=== PATIENT | female | born 1995 | race Caucasian/White ===

== ENCOUNTER 2019-06-20 09:34 | Emergency (ER) | payer BC ==
--- NOTE | 2019-06-20 10:31 | RAD REPORT ---
EXAM DESCRIPTION: CT - Head Brain Wo Cont - 06/20/2019 10:20 am CLINICAL HISTORY: Headache COMPARISON: None TECHNIQUE: Computed axial tomography of the head was obtained. IV contrast was not requested. All CT scans are performed using dose optimization technique as appropriate and may include automated exposure control or mA/KV adjustment according to patient size. FINDINGS: An intracranial bleed is not seen . The ventricles are normal in caliber. No extra-axial fluid collection is noted. Cerebellar tonsillar ectopia is present Fluid within the sinuses/ mastoids is not seen. IMPRESSION: Cerebellar tonsillar ectopia No acute intracranial abnormality is seen. If patient's symptoms persist MRI of the brain would be r ecommended.
--- NOTE | 2019-06-20 10:34 | EKG ---
Test Date: 2019-06-20 Test Time: 10:15:24 Electrical Sign Wirer Helper: NEVAEH MEASUREMENT RESULTS: Intervals: Rate: 75 TX: 132 QRSD: 84 QT: 378 QTc: 422 Startex: P: 80 TX: 132 QRS: 80 T: 70 INTERPRETIVE STATEMENTS: Normal sinus rhythm with sinus arrhythmia Normal ECG No previous ECG available for comparison Electronically Signed On 06-20-19 10:33:20 HALL MANAGER by Johnathan Marion
[2019-06-20] MEDS ORDERED: METOCLOPRAMIDE 10 MG/2mL INJ ONE (10:48)
[2019-06-20] MEDS ORDERED: NA CHLORIDE 0.9% 1,000 ML ONE (10:48)
[2019-06-20 10:50] LABS: Absolute Lymphocytes (CBC) 1.4 K/uL (0.7-4.9); Basophils % 0.2 % (0-1.3); Hematocrit 37.8 % (36.0-45.0); Lymphocytes % 23.5 % (15.3-44.8); MPV 9.3 fL (7.6-11.3); RBC Red Blood Cell Count 4.31 M/uL (3.86-4.86)
[2019-06-20 10:50] LABS: Urine Blood 1+ (NEG); Urine Glucose NEGATIVE (NEG); Urine Protein NEGATIVE (NEG)
[2019-06-20 11:08] LABS: Potassium 3.8 mmol/L (3.5-5.1)
--- NOTE | 2019-06-20 11:23 | ER ---
Nurse's Notes [facility] Name: Radha Rosa Age: 23 yrs Sex: Female : 1995 Arrival Date: 06/20/2019 Time: 09:36 Bed 14 Private MD: Diagnosis: Dizziness and giddiness;Headache Presentation: 06/20 09:42 Presenting complaint: Sinus pressure, dizziness, headache, nausea, and tingling of hb hands and feet x 2 hrs. Hx of anxiety, switched from Lexapro to Zoloft 1 week ago. 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 09:42 Method Of Arrival: Ambulatory hb 09:44 Transition of care: patient was not received from another setting of care. Onset of hb symptoms was June 20, 2019. Risk Assessment: Do you want to hurt yourself or someone else? Patient reports no desire to harm self or others. Initial Sepsis Screen: Does the patient meet any 2 criteria? No. Patient's initial sepsis screen is negative. Does the patient have a suspected source of infection? No. Patient's initial sepsis screen is negative. 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 09:44 Acuity: MALLORY 3 hb Triage Assessment: 09:45 Headache History: The patient has had previous headaches and this one is different than rb1 previous episodes. 09:45 Pain: Also complains of nausea. 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 - Social history:: Smoking status: Patient/guardian denies using tobacco. - Ebola Screening: : No symptoms or risks identified at this time. - Family history:: not pertinent. - Hospitalizations: : No recent hospitalization is reported. Screenin:45 Abuse screen: Denies threats or abuse. Nutritional screening: No deficits noted. rb1 Tuberculosis screening: No symptoms or risk factors identified. Fall Risk None identified. Assessment: 09:45 General: Appears in no apparent distress. comfortable, Behavior is calm, cooperative, rb1 Denies fever. Pain: Complains of pain in head Pain currently is 5 out of 10 on a pain scale. Neuro: Level of Consciousness is awake, alert, obeys commands, Oriented to person, place, time, situation, Reports blurred vision dizziness, headache weakness since Symptoms started at 0630 this morning. Neuro: Reports numbness in face and legs. Cardiovascular: Capillary refill < 3 seconds is brisk in bilateral fingers. Respiratory: Airway is patent Respiratory effort is even, unlabored, Respiratory pattern is regular, symmetrical. Respiratory: Reports congestion. GI: Reports nausea. : No signs and/or symptoms were reported regarding the genitourinary system. Derm: Skin is pink, warm \T\ dry. Musculoskeletal: Range of motion: intact in all extremities. 10:45 Reassessment: Patient appears in no apparent distress at this time. No changes from rb1 previously documented assessment. 11:40 Reassessment: Patient appears in no apparent distress at this time. Patient and/or rb1 family updated on plan of care and expected duration. Pain level reassessed. Patient is alert, oriented x 3, equal unlabored respirations, skin warm/dry/pink. Vital Signs: 09:44 BP 133 / 84; Pulse 92; Resp 16; Temp 98.2; Pulse Ox 100% ; Weight 49.9 kg; Height 5 ft. hb 7 in. (170.18 cm); Pain 3/10; 10:57 BP 106 / 62; Pulse 76; Resp 15; Temp 98.1(O); Pulse Ox 100% on R/A; mh5 11:40 BP 110 / 79; Pulse 75; Resp 16; Pulse Ox 99% on R/A; rb1 09:44 Body Mass Index 17.23 (49.90 kg, 170.18 cm) hb ED Course: 09:36 Patient arrived in ED. as 09:44 Arm band placed on. hb 09:45 Triage completed. hb 09:53 Sampson Taylor MD is Attending Physician. rn 10:13 Cailin Sweet, LEONORA is Primary Nurse. rb1 10:15 EKG done, by geospatial technician. reviewed by Sampson Taylor MD. at1 10:[address] via wheelchair. sw 10:23 CT Head Brain wo Cont In Process Unspecified. EDMS 10:53 Urine collected: clean catch specimen, clear. Inserted saline lock: 22 gauge in right mh5 antecubital area, using aseptic technique. Blood collected. 10:54 Patient has correct armband on for positive identification. Bed in low position. Call [facility] light in reach. Pulse ox on. NIBP on. 10:56 Urine Microscopic Only Sent. 5 10:56 Basic Metabolic Panel Sent. [facility] 10:56 CBC with Diff Sent. [facility] 11:47 No provider procedures requiring assistance completed. IV discontinued, intact, rb1 bleeding controlled, No redness/swelling at site. Pressure dressing applied. Administered Medications: 10:55 Drug: Reglan 10 mg Route: IVP; Site: right antecubital; rb1 11:10 Follow up: Response: No adverse reaction rb1 10:55 Drug: NS 0.9% 1000 ml Route: IV; Rate: 1000 ml; Site: right antecubital; rb1 11:40 Follow up: IV Status: Completed infusion rb1 Outcome: 11:23 Discharge ordered by MD. rn 11:47 Patient left the ED. [facility] 11:47 Discharged to home ambulatory, with family. [facility] 11:47 Condition: stable 11:47 Discharge instructions given to patient, Instructed on discharge instructions, follow up and referral plans. Demonstrated understanding of instructions, follow-up care, Prescriptions given X none Signatures: Dispatcher [employer] Francoise Hickey Roman, MD MD rn Gonzales, Amanda, manufacturing worker EKG Tat1 Sandrine Gonsalez Rebecca, RN RN rb1 Deidre Osei RN RN hb Martinez, Maria [facility] Corrections: (The following items were deleted from the chart) 10:58 09:46 Allergies: No Known Allergies; [facility]
--- NOTE | 2019-06-20 11:24 | EDPHYS ---
Physician Documentation [facility] Name: Radha Rosa Age: 23 yrs Sex: Female : 1995 Arrival Date: 06/20/2019 Time: 09:36 Bed 14 Private MD: ED Physician Sampson Taylor HPI: 06/20 10:08 This 23 yrs old Female presents to ER via Ambulatory with complaints of rn Dizziness, Headache. 10:08 The patient presents with dizziness, lightheadedness. Onset: The symptoms/episode rn began/occurred 2 hour(s) ago. Context: occurred while the patient was at rest, just prior to the episode the patient experienced no apparent symptoms. Modifying factors: The symptoms are alleviated by nothing, the symptoms are aggravated by nothing. Severity of symptoms: At their worst the symptoms were moderate in the emergency department the symptoms have improved. The patient has not experienced similar symptoms in the past. Reports at rest, sudden onset of dizziness, blurred vision, numbness to both legs, came in 2 episodes, each one lasted approx 15 min, took xanax prior to arrival, not sure if the medication helped, but feels better, near baseline now. Mother with MS, patient without medical problems other than depression and anxiety. No head injury. . 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 - Social history:: Smoking status: Patient/guardian denies using tobacco. - Ebola Screening: : No symptoms or risks identified at this time. - Family history:: not pertinent. - Hospitalizations: : No recent hospitalization is reported. ROS: 10:08 Constitutional: Negative for fever, chills, and weight loss, Eyes: Negative for injury, rn pain, redness, and discharge, Neck: Negative for injury, pain, and swelling, Cardiovascular: Negative for chest pain, palpitations, and edema, Respiratory: Negative for shortness of breath, cough, wheezing, and pleuritic chest pain, Abdomen/GI: Negative for abdominal pain, nausea, vomiting, diarrhea, and constipation, MS/Extremity: Negative for injury and deformity, Skin: Negative for injury, rash, and discoloration, Neuro: Negative for weakness, and seizure. Exam: 10:08 Constitutional: This is a well developed, well nourished patient who is awake, alert, rn and in no acute distress. Head/Face: Normocephalic, atraumatic. Eyes: Pupils equal round and reactive to light, extra-ocular motions intact. Lids and lashes normal. Conjunctiva and sclera are non-icteric and not injected. Cornea within normal limits. Periorbital areas with no swelling, redness, or edema. ENT: MMM Neck: Trachea midline, no thyromegaly or masses palpated, and no cervical lymphadenopathy. Supple, full range of motion without nuchal rigidity, or vertebral point tenderness. No Meningismus. Cardiovascular: Regular rate and rhythm. No pulse deficits. Respiratory: No increased work of breathing, no retractions or nasal flaring. Abdomen/GI: soft, non-tender Skin: Warm, dry with normal turgor. Normal color with no rashes, no lesions, and no evidence of cellulitis. MS/ Extremity: Pulses equal, no cyanosis. Neurovascular intact. Full, normal range of motion. Equal circumference. Neuro: Awake and alert, GCS 15, oriented to person, place, time, and situation. Cranial nerves II-XII grossly intact. Motor strength 5/5 in all extremities. Sensory grossly intact. Cerebellar exam normal. Vital Signs: 09:44 BP 133 / 84; Pulse 92; Resp 16; Temp 98.2; Pulse Ox 100% ; Weight 49.9 kg; Height 5 ft. hb 7 in. (170.18 cm); Pain 3/10; 10:57 BP 106 / 62; Pulse 76; Resp 15; Temp 98.1(O); Pulse Ox 100% on R/A; mh5 11:40 BP 110 / 79; Pulse 75; Resp 16; Pulse Ox 99% on R/A; rb1 09:44 Body Mass Index 17.23 (49.90 kg, 170.18 cm) hb MDM: 09:53 Patient medically screened. rn 11:20 Differential diagnosis: hyperventilation, near-syncope, vertigo, MS, anxiety, ocular rn migraine, atypical migraine. Data reviewed: vital signs, nurses notes, lab test result(s), EKG, radiologic studies, CT scan, and as a result, I will discharge patient. Counseling: I had a detailed discussion with the patient and/or guardian regarding: the historical points, exam findings, and any diagnostic results supporting the discharge/admit diagnosis, lab results, radiology results, the need for outpatient follow up, to return to the emergency department if symptoms worsen or persist or if there are any questions or concerns that arise at home. Response to treatment: the patient's symptoms have markedly improved after treatment, the patient's symptoms have resolved after treatment, the patient's condition has returned to base line, the patient is now symptom free, and as a result, I will discharge patient. Special discussion: I discussed with the patient/guardian in detail that at this point there is no indication for admission to the hospital. It is understood, however, that if the symptoms persist or worsen the patient needs to return immediately for re-evaluation. ED course: Pt improved, asymptomatic, possibly ocular or atypical migraine followed by hyperventilation, very short lived, mother with MS, but given rpid onset and resolution and no previous hx in patient, no indication for emergent LP or further testing at this point. If happens again or worsens, will need neuro f/u and further testing.. 06/20 10:06 Order name: CBC with Diff; Complete Time: 11: rn 06/20 10:06 Order name: Basic Metabolic Panel; Complete Time: 11: rn 06/20 10:06 Order name: Urine Microscopic Only rn 06/20 10:06 Order name: CT Head Brain wo Cont; Complete Time: 10:35 rn 06/20 10:28 Order name: Urine Dipstick--Ancillary (enter results); Complete Time: 10:55 bd 06/20 10:28 Order name: Urine --Ancillary (enter results); Complete Time: 10:55 bd 06/20 10:06 Order name: IV Start; Complete Time: 10:56 rn 06/20 10:06 Order name: Urine Test (obtain specimen); Complete Time: 10:56 rn 06/20 10:06 Order name: Urine Dipstick-Ancillary (obtain specimen); Complete Time: 10:56 rn 06/20 10:06 Order name: EKG; Complete Time: 10:08 rn 06/20 10:06 Order name: EKG - Nurse/Tech; Complete Time: 10:40 rn Administered Medications: 10:55 Drug: Reglan 10 mg Route: IVP; Site: right antecubital; rb1 11:10 Follow up: Response: No adverse reaction rb1 10:55 Drug: NS 0.9% 1000 ml Route: IV; Rate: 1000 ml; Site: right antecubital; rb1 11:40 Follow up: IV Status: Completed infusion rb1 Disposition: 06/20/19 11:23 Discharged to Home. Impression: Dizziness and giddiness, Headache. - Condition is Stable. - Discharge Instructions: Dizziness, General Headache Without Cause, Hyperventilation, Paresthesia. - Medication Reconciliation Form, Thank You Letter, Antibiotic Education, Prescription Opioid Use form. - Follow up: Private Physician; When: As needed; Reason: Recheck today's complaints, Re-evaluation by your physician. - Problem is new. - Symptoms are resolved. Signatures: Dispatcher [employer] EDMS Sampson Taylor MD MD rn Barber, Rebecca, RN RN rb1 Deidre Osei RN RN Corrections: (The following items were deleted from the chart) 10:58 09:46 Allergies: No Known Allergies; hb rb1 11:47 11:23 06/20/2019 11:23 Discharged to Home. Impression: Dizziness and giddiness; rb1 Headache. Condition is Stable. Forms are Medication Reconciliation Form, Thank You Letter, Antibiotic Education, Prescription Opioid Use. Follow up: Private Physician; When: As needed; Reason: Recheck today's complaints, Re-evaluation by your physician. Problem is new. Symptoms are resolved. rn
[2019-06-20 11:30] LABS: Urine Bacteria <20 /HPF (<20); Urine Culture Reflex Order NOT NEEDED; Urine Mucus SLIGHT /HPF (NONE SEEN)
[2019-06-20 12:55] VITALS: O2SAT 100
[2019-06-20 12:57] VITALS: BP 106/62; TEMP 98.1
== END 2019-06-20 11:47 | disposition home or self-care (01) ==
LOC: ER 09:34
DX: R42 Dizziness and giddiness (principal); Z88.1 Allergy status to other antibiotic agents; F41.8 Other specified anxiety disorders
CPT/HCPCS: 96361; 93005; 85025; 80048; 36415; 81025; 70450; 96374; 99284; J2765; J7030; 81003; 81015

== ENCOUNTER 2024-07-11 22:56 | Emergency (ER) | payer BC, OTHER ==
--- NOTE | 2024-07-11 23:21 | EDPHYS ---
Physician Documentation [facility] Name: Radha Rosa Age: 29 yrs Sex: Female : 1995 Arrival Date: 07/11/2024 Time: 22:56 Bed 8 Private MD: ED Physician Tulio Lala HPI: 07/11 23:00 This 29 yrs old Female presents to ER via Unassigned with complaints of VAGINAL INJURY. kb 23:00 Pt is a 29 year old female who presents for vaginal bleeding that started after hitting vaginal area on a corner of a square pole. Denies any other injuries. . 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 - Infectious Disease History:: Denies. - Social history:: Smoking status: Patient denies any tobacco usage or history of. ROS: 23:00 Constitutional: As per HPI kb Exam: 23:00 Constitutional: This is a well developed, well nourished patient who is awake, alert, kb and in no acute distress. Head/Face: Normocephalic, atraumatic. ENT: Moist Mucous membranes Cardiovascular: Regular rate Respiratory: Respirations even and unlabored. No increased work of breathing. Talking in full sentences Skin: Warm, dry with normal turgor. Normal color. MS/ Extremity: Pulses equal, no cyanosis. Neurovascular intact. Full, normal range of motion. Neuro: Awake and alert, GCS 15, oriented to person, place, time, and situation. 23:22 : Pelvic Exam: External exam: 0.5cm laceration just left of urethra, the family/significant other was present for the exam, Vital Signs: 23:00 BP 127 / 90; Pulse 105; Resp 18 S; Temp 97.8; Pulse Ox 100% on R/A; Weight 49.9 kg; ha1 Height 5 ft. 7 in. ; Pain 2/10; 23:45 BP 118 / 84; Pulse 96; Resp 18; Temp 97.8; Pulse Ox 100% ; Pain 2/10; bm8 23:00 Body Mass Index 17.23 (49.90 kg, 170.18 cm) ha1 23:00 Pain Scale: Adult ha1 23:45 Pain Scale: Adult bm8 Clinton Coma Score: 23:45 Eye Response: spontaneous(4). Motor Response: obeys commands(6). Verbal Response: bm8 oriented(5). Total: 15. MDM: 22:58 Medical Screening Exam initiated kb 23:21 Differential diagnosis: laceration, vascular injury, abrasion. Data reviewed: vital kb signs, nurses notes. Management of patient was discussed with the following: Dr Lala, who examined area as well. Does not recommend laceration repair due to location. Laceration is well approximated. Pt educated on keeping clean, sitz baths and abx. . Historians other than the Patient: Spouse/Significant Other: spouse. Counseling: I had a detailed discussion with the patient and/or guardian regarding the historical points, exam findings, and any diagnostic results supporting the discharge/admit diagnosis, the need for outpatient follow up, an OB/Gyne specialist, to return to the emergency department if symptoms worsen or persist or if there are any questions or concerns that arise at home. Administered Medications: No medications were administered Disposition: 07/12 06:45 Co-signature as Attending Physician, Tulio Lala MD I agree with the assessment and anny plan of care. Disposition Summary: 07/11/24 23:21 Discharge Ordered Notes: Location: Home kb Condition: Stable kb Diagnosis - Laceration without foreign body of periurethral area kb Followup: kb - With: Emergency Department - When: As needed - Reason: Worsening of condition Followup: kb - With: Private Physician - When: 2 - 3 days - Reason: Recheck today's complaints, Continuance of care, Re-evaluation by your physician Discharge Instructions: - Discharge Summary Sheet kb - Vaginal Laceration kb Forms: - Medication Reconciliation Form kb - Antibiotic Education kb - Prescription Opioid Use kb - Patient Portal Instructions kb - Leadership Thank You Letter kb Prescriptions: - Bactrim DS 800-160 mg Oral Tablet - take 1 tablet ORAL route every 12 hours for 7 days; 14 tablet; Refills: 0, kb Product Selection Permitted Signatures: Soo Jackson, FRUIT PEELER-C BETTY-Tulio Toribio MD MD cha Ayala, Heidy, RN RN ha1
--- NOTE | 2024-07-11 23:48 | ER ---
Nurse's Notes [facility] Name: Radha Rosa Age: 29 yrs Sex: Female : 1995 Arrival Date: 07/11/2024 Time: 22:56 Bed 8 Private MD: Diagnosis: Laceration without foreign body of periurethral area Presentation: 07/11 23:00 Chief complaint: Patient states: I WAS DANCING AT A BAR AFTER HAVING SOME DRINKS AND I ha1 ACCIDENTALLY HIT A METAL POLL THAT I BELIEVE CAUSE ME A VAGINAL INJURY. 23:00 Coronavirus screen: At this time, unable to obtain information related to travel ha1 outside the [place] At this time, the client does not indicate any symptoms associated with coronavirus-19. Ebola Screen: No symptoms or risks identified at this time. Initial Sepsis Screen: Does the patient meet any 2 criteria? No. Patient's initial sepsis screen is negative. Does the patient have a suspected source of infection? No. Patient's initial sepsis screen is negative. Risk Assessment: Do you want to hurt yourself or someone else? Patient reports no desire to harm self or others. Onset of symptoms was July 11, 2024. 23:00 Method Of Arrival: Ambulatory ha1 23:00 Acuity: MALLORY 4 ha1 Triage Assessment: 23:32 General: Appears comfortable, Behavior is calm, cooperative. Pain: Complains of pain in ha1 pelvis Pain does not radiate. Pain currently is 2 out of 10 on a pain scale. Quality of pain is described as aching. Neuro: Level of Consciousness is awake, alert, obeys commands, Oriented to person, place, time, situation. Cardiovascular: Capillary refill < 3 seconds Patient's skin is warm and dry. Respiratory: Airway is patent Respiratory effort is even, unlabored, Respiratory pattern is regular, symmetrical. GI: Abdomen is flat, non-distended. : Reports vaginal bleeding that is. 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 - Infectious Disease History:: Denies. - Social history:: Smoking status: Patient denies any tobacco usage or history of. Screenin:[facility] ED Fall Risk Assessment (Adult) History of falling in the last 3 months, ha1 including since admission No falls in past 3 months (0 pts) Confusion or Disorientation No (0 pts) Intoxicated or Sedated No (0 pts) Impaired Gait No (0 pts) Mobility Assist Device Used No (0 pt) Altered Elimination No (0 pt) Score/Fall Risk Level 0 - 2 = Low Risk Oriented to surroundings, Maintained a safe environment, Educated pt \T\ family on fall prevention, incl call for assistance when getting out of bed, Hourly rounding (assess needs \T\ fall precautionary measures) done. Abuse screen: Denies threats or abuse. Denies injuries from another. Nutritional screening: No deficits noted. Tuberculosis screening: No symptoms or risk factors identified. Assessment: 23:45 Reassessment: No changes from previously documented assessment. Patient and/or family bm8 updated on plan of care and expected duration. Pain level reassessed. Patient is alert, oriented x 3, equal unlabored respirations, skin warm/dry/pink. Patient states feeling better. Patient states symptoms have improved. Vital Signs: 23:00 BP 127 / 90; Pulse 105; Resp 18 S; Temp 97.8; Pulse Ox 100% on R/A; Weight 49.9 kg; ha1 Height 5 ft. 7 in. ; Pain 2/10; 23:45 BP 118 / 84; Pulse 96; Resp 18; Temp 97.8; Pulse Ox 100% ; Pain 2/10; bm8 23:00 Body Mass Index 17.23 (49.90 kg, 170.18 cm) ha1 23:00 Pain Scale: Adult ha1 23:45 Pain Scale: Adult bm8 Tara Coma Score: 23:45 Eye Response: spontaneous(4). Motor Response: obeys commands(6). Verbal Response: bm8 oriented(5). Total: 15. ED Course: 22:57 Patient arrived in ED. [id number] 22:58 Soo Jackson FNP-C is PSYCHIATRICP. kb 22:58 Tulio Lala MD is Attending Physician. kb 23:00 Patient has correct armband on for positive identification. Placed in gown. Bed in low ha1 position. Call light in reach. Side rails up X 1. Adult w/ patient. 23:32 Triage completed. ha1 23:45 Tomas Souza, RN is Primary Nurse. bm8 23:45 Provided Education on: post er care. Client placed on continuous cardiac and pulse bm8 oximetry monitoring. NIBP monitoring applied. Pulse ox on. NIBP on. 23:45 No provider procedures requiring assistance completed. IV discontinued, intact, bm8 bleeding controlled, No redness/swelling at site. Pressure dressing applied. 23:47 Arm band placed on right wrist. bm8 Administered Medications: No medications were administered Medication: 23:35 VIS not applicable for this client. ha1 Outcome: 23:21 Discharge ordered by . kb 23:45 Discharged to home ambulatory, bm8 23:45 Condition: stable 23:45 Discharge instructions given to patient, family, Instructed on discharge instructions, follow up and referral plans. medication usage, Demonstrated understanding of instructions, follow-up care, Prescriptions given X 1, 23:47 Patient left the ED. bm8 Signatures: Soo Jackson, GENERAL PASSENGER AGENT-C GENERAL PASSENGER AGENT-Maria Guadalupe Farfan [id number] Luh Ash, RN RN ha1 Tomas Souza, RN RN bm8
[2024-07-12 06:19] VITALS: TEMP 97.8; O2SAT 100
[2024-07-12 06:20] VITALS: BP 118/84
== END 2024-07-11 23:47 | disposition home or self-care (01) ==
LOC: ER 22:56
DX: S37.33XA Laceration of urethra, initial encounter (principal)
CPT/HCPCS: 99283